=== PATIENT | female | born 1995 | race Caucasian/White ===

== ENCOUNTER 2017-02-04 08:43 | Emergency (ER) | payer MEDICARE ==
[~2017-02-04] VITALS: Ht 157.5 cm; Wt 81.6 kg
[2017-02-04 08:43] VITALS: BP_SYST 132
[2017-02-04 09:24] VITALS: BP_SYST 122
== END 2017-02-04 09:24 | disposition home or self-care (01) ==
LOC: SED 08:43
DX: J02.8 Acute pharyngitis due to other specified organisms (principal); B97.89 Other viral agents as the cause of diseases classified elsewhere; J30.2 Other seasonal allergic rhinitis
CPT/HCPCS: 99282